=== PATIENT | female | born 1970 | race Asian ===

== ENCOUNTER 2018-09-09 09:50 | Day surgery (SDC) | payer BC ==
--- NOTE | 2018-09-01 09:54 | HP ---
Admitting History and Physical - Primary Care Physician PCP: Ej Ledesma - Admission Chief Complaint: Right breast LCIS and atypia History of Present Illness: 47 year old premenapausal female with strong family H/O breast cancer , genetic testing pending. She was found to have some right breast assymetry on mammogram 08/2018 with a 6mm density on US. US core biopsy 07/29/2018 showed LCIS and ALH. Breast MRI 08/27/2018 Birad 2 benign disease History Source: Patient Limitations to Obtaining History: No Limitations - Past Medical History Pulmonary: Yes: Asthma Reproductive: Yes: Other ( amenorhea/ PCOS) Infectious Disease: Yes: Other (Lyme dz) Rheumatology: Yes: Other (Lyme dz?) - Past Surgical History Past Surgical History: Yes: (x2), Tubal Ligation Additional Past Surgical History: right meniscal tear Home Medications - Allergies Allergies/Adverse Reactions: Allergies Allergy/AdvReac Type Severity Reaction Status Date / Time latex Allergy Verified 08/27/18 15:54 Penicillins Allergy Verified 08/27/18 15:53 Family Disease History - Family Disease History Family Disease History: CA: Mother (breast ca ? ovarian ca 83 ) Other Family History: mat aunt breast ca 68/mat cousin breast ca 40's/pat aunt breast ca and lung ca 70's Physical Examination Constitutional: Yes: Well Nourished Breast(s): Yes: Other ( C cup symmetrical breasts some bruising from core biopsy right breast lower outer quadrant with post bx changes lateral aspect right breast . No adenopathy left breast negative) Problem List - Problems (1) Lobular carcinoma in situ (LCIS) of right breast Code(s): D05.01 - LOBULAR CARCINOMA IN SITU OF RIGHT BREAST Assessment/Plan Right breast wide excision with mammogram needle localization
[2018-09-04 09:18] VITALS: BMI 27.3
[2018-09-09] MEDS ORDERED: LIDOCAINE HCL 1% PRESERVATIVE FREE - 30ML VIAL ONE (12:49)
[2018-09-09] MEDS ORDERED: MIDAZOLAM HCL 2 MG/2 ML SINGLE DOSE VIAL ONE ×2 (12:54→14:42)
[2018-09-09] MEDS ORDERED: LIDOCAINE HCL/PF 2% SDV 5ML VIAL ONE (12:54)
[2018-09-09] MEDS ORDERED: PROPOFOL 20 ML ONE (12:54)
[2018-09-09] MEDS ORDERED: LIDOCAINE HCL 1%, 10 MG/ML (50 mL VIAL) IJ ONE (14:01)
[2018-09-09] MEDS ORDERED: ONDANSETRON 4 MG/2 ML VIAL ONE (14:07)
[2018-09-09] MEDS ORDERED: DEXAMETHASONE SOD PHOSPHATE 4 MG/1 ML VIAL ONE (14:07)
[2018-09-09] MEDS ORDERED: GUM MASTIC/STORAX/MSAL/ALCOHOL 1 DRP DROPSBTL MC ONE (14:19)
[2018-09-09] MEDS ORDERED: BUPIVACAINE HCL/PF 0.25% (2.5MG/ML) 10 ML VIAL IJ ONE (14:26)
[2018-09-09] MEDS ORDERED: KETOROLAC TROMETHAMINE 30 MG/1 ML VIAL IVPUSH PRN (14:45)
[2018-09-09] MEDS ORDERED: DEXTROSE 5%-0.45% SALINE 1,000 ML IV SCH (14:45)
[2018-09-09] MEDS ORDERED: ONDANSETRON 4 MG/2 ML VIAL IVPUSH PRN (14:45)
[2018-09-09 15:05] VITALS: TEMP 98.1
[2018-09-09 17:18] VITALS: BP 126/72; PULSE 76
--- NOTE | 2018-09-09 18:34 | OP ---
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 PROCEDURE: Right breast wide excision with mammographic needle localization. ANESTHESIA: General and laryngeal mask airway anesthesia. PRIMARY SURGEON: Rodney Ledesma MD POTATO INSPECTOR: P[employer] COMPLICATIONS: There are no complications. Briefly, the patient is a 47-year-old G2, P2, premenopausal female of /[place] descent. She has a family history with her mother passing away from breast cancer at age 83, as well as her maternal aunt passing away from breast cancer at age 68, and a maternal cousin with breast cancer in her 40s, another maternal cousin had cervical cancer in her 50s, and a paternal aunt had breast cancer at age 35 and 60. The patient was found to have some asymmetry in the lateral aspect of the right breast on screening mammography in July 2018. 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 She underwent genetic testing which is pending. An MRI on August 27, 2018, was negative. She was advised on undergoing a partial mastectomy for this area of atypia, LCIS, and pseudoangiomatous stromal hyperplasia. Slides were reviewed confirming the outside pathology. She was brought in for the procedure on September 09, 2018. She was brought in through ambulatory surgery and underwent a needle localization under mammographic guidance in radiology and was brought to the holding area. In the holding area, site verification was made, and informed consent was obtained. She was brought into the operating room and laid on the OR table in the supine position. Venodynes were placed on the lower extremities prior to induction. She received general and laryngeal mask airway anesthesia. The right breast was then sterilely prepped and draped in the usual fashion. A curvilinear incision was made in the lateral aspect of the right breast just medial to the exit side of the wire from the skin. Dissection was undertaken, and the breast tissue was completely removed from around the wire with the wire intact within the middle of the specimen. The specimen was oriented with long lateral, short superior suture and specimen radiograph showed removal of the clip in question. Hemostasis was achieved. The breast parenchyma was then reapproximated using 2-0 plain suture. The skin was closed using interrupted 3-0 deep dermal Vicryl suture and a running 4-0 subcuticular Biosyn suture. Dermabond was placed over the wound. Compressive dressing placed over this. She was placed in a surgical bra postoperatively. The patient tolerated the procedure well without difficulty, and laryngeal mask airway tube was removed at the end of the case. She will be recovered in the postanesthesia care unit and then discharged home the same day once discharge criteria are met. All sponge and needle counts were correct at the end of the case. Estimated blood loss was minimal. She should follow up in the office in 1 week for formal wound pathology check. RODNEY LEDESMA M.D. [id number]
--- NOTE | 2018-09-12 11:47 | PATH ---
Surgical Pathology Report Patient Name: CHRISTY CONNOLLY [facility]. Rec. #: [id number] /Age/Gender: 1970 (Age: 48) / F Account: [id number] Location: [facility] AMBULATORY Taken: 09/09/2018 Received: 09/09/2018 Reported: 09/12/2018 Physicians: Ej Ledesma M.D. Specimen(s) Received RIGHT BREAST WIDE EXCISION Clinical History LCIS, PASH, atypia Final Diagnosis RIGHT BREAST, WIDE EXCISION: LOBULAR CARCINOMA IN SITU (LCIS), CLASSICAL TYPE, ARISING IN A BACKGROUND OF CONFLUENT SCLEROSING ADENOSIS. REMAINING BREAST TISSUE SHOWS PROLIFERATIVE FIBROCYSTIC CHANGES WITH USUAL DUCTAL HYPERPLASIA, APOCRINE METAPLASIA, MICROCYSTS, AND MICROCALCIFICATIONS. REACTIVE CHANGES AT PRIOR BIOPSY SITE IDENTIFIED. Comment: Immunohistochemical stains (block 5) performed and interpreted at [facility] show the following results: smooth muscle myosin heavy chain and p63 show the preservation of myoepithelial cell layer in the sclerosing adenosis. E-Cadherin demonstrates loss membrane staining in the areas of lobular carcinoma in situ. Electronically Signed Leroy Mustafa M.D. Gross Description Received in formalin, labeled "right breast wide excision," is a 4.7 x 3.4 x 2.3 cm. paris-yellow, irregular, portion of fibroadipose tissue. There is no needle localization wire present. There is a short suture marking the superior aspect and a long suture marking the lateral aspect, per the surgeon. There is no skin or nipple present. The specimen is inked as follows: superior and lateral blue; inferior green; medial yellow; anterior red; deep black. The specimen is serially sectioned from lateral to medial. Sectioning reveals abundant dense, white, focally firm fibrous tissue. No definitive mass is identified. Purchasing Agent sections are submitted in 12 cassettes as follows: [id number] submitted fibrous tissue from lateral to medial (one bisected section each in cassettes 2/3, 4/5, 6/7, 8/9); 11-lateral margin; 12-medial margin. Time to formalin fixation: 12 minutes Total formalin fixation time: Approximately 28 hours. 09/10/2018 [facility]09/10/2018
== END 2018-09-09 17:30 | disposition home or self-care (01) ==
LOC: FASU 09:50
PROVIDERS: ATTEND Surgery Surgical Oncology
PROC: 0HBT0ZZ Excision of Right Breast, Open Approach (ICD-10-PCS; principal; 2018-09-09 13:00)
DX: D05.01 Lobular carcinoma in situ of right breast (principal); N60.91 Unspecified benign mammary dysplasia of right breast; N60.81 Other benign mammary dysplasias of right breast; Z80.3 Family history of malignant neoplasm of breast
CPT/HCPCS: 19281; 84703; 88307-TC; 88341-TC; 88342-TC; 94760